=== PATIENT | male | born 1965 | race Caucasian/White ===

== ENCOUNTER 2020-09-14 18:19 | Emergency (ER) | payer OTHER ==
[~2020-09-14] VITALS: Ht 180.3 cm; Wt 80.3 kg
--- NOTE | 2020-09-14 18:32 | NUR ---
PORTER FROM TO ER BED 4. AAOX4. NOT IN RESP DISTRESS. AMBULATORY. CAME IN FOR R LEG LEG SWEELING ON THE THOMAS. NOTED EXTERNAL ROTATION. PT REPORTS SLIPPING WHILE PLAYING WITH HIS CHILD AND HEARD A POPPING SOUND. MD AT BEDSIDE FOR EVAL. AWAITING ORDERS.
--- NOTE | 2020-09-14 19:22 | NUR ---
AGUSID SWABBED, SENT TO LAB.
[2020-09-14] MEDS ORDERED: LIDOCAINE /MPF 1% VIAL 5 ML VIAL IJ ONE (20:00)
[2020-09-14] MEDS ORDERED: LIDOCAINE HCL/MPF 1% 30 ML VIAL IJ ONE (20:00)
[2020-09-14] MEDS ORDERED: FENTANYL PF 100MCG/2ML AMPUL IV ONE (20:00)
[2020-09-14] MEDS ORDERED: FENTANYL PF 100MCG/2ML AMPUL ONE (20:02)
--- NOTE | 2020-09-14 20:30 | NUR ---
SPOKE WITH NEMESIO, [employer] DEVELOPER OF [facility]. CLINICAL WERE FAXED WELL.
[2020-09-14 21:05] VITALS: BP 142/99
--- NOTE | 2020-09-14 21:21 | NUR ---
CHIRSTIANO AND DR JOSE ON LINE WITH DR SWAN
--- NOTE | 2020-09-14 21:41 | NUR ---
PT GOING TO [facility] UNDER THE CARE OF DR. RILEY. PT GOING TO ROOM 463. [facility] ETA 90MIN. CALL [phone] FOR REPORT
--- NOTE | 2020-09-14 22:05 | NUR ---
ATTEMPTED TO GIVE REPORT. RN BUSY WILL CALLBACK IN 10 MIN
--- NOTE | 2020-09-14 22:20 | NUR ---
GAVE REPORT TO RYAN MONTERO FOR HERMELINDO
--- NOTE | 2020-09-14 23:35 | NUR ---
GAVE REPORT AND TRANSFER PAPERWORK TO EMS
== END 2020-09-14 23:35 | disposition short-term general hospital (02) ==
LOC: ER 18:26
PROC: 0QSGXZZ Reposition Right Tibia, External Approach (ICD-10-PCS; principal; 2020-09-14)
PROC: 0QSJXZZ Reposition Right Fibula, External Approach (ICD-10-PCS; principal; 2020-09-14)
DX: S82.391A Other fracture of lower end of right tibia, initial encounter for closed fracture (principal); S82.831A Other fracture of upper and lower end of right fibula, initial encounter for closed fracture; W01.0XXA Fall on same level from slipping, tripping and stumbling without subsequent striking against object, initial encounter; Y93.66 Activity, soccer; Y92.017 Garden or yard in single-family (private) house as the place of occurrence of the external cause; Y99.8 Other external cause status
CPT/HCPCS: 27752; 73560; 73590 ×2; 73610; 87081; 87426; 96374; 99285; C9803; J3010; J3490